=== PATIENT | male | born 1940 | race Caucasian/White ===

== ENCOUNTER 2023-08-19 08:43 | Outpatient (RCR) | payer MEDICARE, SELFPAY | END 2023-08-19 17:00 | disposition home or self-care (01) | LOC: HO.WCC 08:43 | PROVIDERS: PCP Internal Medicine; Visit Provider Physician Assistant | DX: Z09 Encounter for follow-up examination after completed treatment for conditions other than malignant neoplasm (principal); I87.2 Venous insufficiency (chronic) (peripheral); R60.0 Localized edema; G62.9 Polyneuropathy, unspecified; I10 Essential (primary) hypertension; Z79.01 Long term (current) use of anticoagulants; Z87.2 Personal history of diseases of the skin and subcutaneous tissue | CPT/HCPCS: 99203 ==

== ENCOUNTER 2024-09-21 13:38 | Outpatient (RCR) | payer MEDICARE, SELFPAY | END 2024-11-18 14:12 | disposition home or self-care (01) | LOC: HO.WCC 13:38 | PROVIDERS: PCP Internal Medicine; Visit Provider Surgery | DX: I87.331 Chronic venous hypertension (idiopathic) with ulcer and inflammation of right lower extremity (principal); L97.812 Non-pressure chronic ulcer of other part of right lower leg with fat layer exposed; I11.0 Hypertensive heart disease with heart failure; I50.9 Heart failure, unspecified; I73.9 Peripheral vascular disease, unspecified; G62.9 Polyneuropathy, unspecified | CPT/HCPCS: 97597; 99213 ==